=== PATIENT | male | born 1980 | race Two or more races ===

== ENCOUNTER → 2020-10-26 | Outpatient (CLI) | payer BC ==
[2016-03-09 14:05] VITALS: BP 119/70
[~2020-10-26] MED LIST: HYDR-2765 PO
--- NOTE | 2020-10-26 09:26 | RAD ---
EXAM: Abdomen sonogram. HISTORY: Pain. TECHNIQUE: Sonographic imaging of the abdomen was performed. COMPARISON: CT dated 12/18/2013. FINDINGS: The liver is normal in size. No focal hepatic lesion is seen. There is cholelithiasis. Ther e is no cholecystitis. The common bile duct is normal in caliber. The kidneys, pancreas, spleen, aort a and inferior vena cava are unremarkable. IMPRESSION: 1. Cholelithiasis. 2. Otherwise, unremarkable abdomen sonogram. Electronically signed by: Sharmaine Herring MD (10/26/2020 9:24 AM) [id number]
== END ==
LOC: US 07:40
PROVIDERS: ATTEND Family Medicine
DX: K80.20 Calculus of gallbladder without cholecystitis without obstruction (principal)
CPT/HCPCS: 76700